=== PATIENT | female | born 1960 | race Caucasian/White ===

== ENCOUNTER 2017-09-28 01:50 | Emergency (ER) | payer OTHER | END 2017-09-28 03:32 | disposition home or self-care (01) | LOC: FTE 01:50 | DX: F41.9 Anxiety disorder, unspecified (principal); E11.9 Type 2 diabetes mellitus without complications; Z79.82 Long term (current) use of aspirin; Z79.84 Long term (current) use of oral hypoglycemic drugs; Z87.891 Personal history of nicotine dependence | CPT/HCPCS: 99283; Z7502 ==